=== PATIENT | female | born 1980 | race Two or more races ===

== ENCOUNTER 2018-09-08 19:31 | Emergency (ER) | payer OTHER ==
--- NOTE | 2018-09-08 19:58 | EDPHY ---
H & P Stated Complaint: pt c/o of bilateral flank pain, blood in urine x 2 days. some nausea. Time Seen by Provider: 09/08/18 19:48 HPI/ROS: 38 yo F history obtained through [employer], presents c/o 2-3 days of blood in her urine and lower back pain, a feeling of generalized fatigueand nausea. No dysuria. No fever, though she states she sometimes has hot flashes at night. No vomiting or diarrhea. Review of systems As per HPI General no fever no chills positive fatigue HEENT no eye pain no eye discharge. No eye redness, no sore throat Respiratory no cough, no shortness of breath Cardiac no chest pain, no peripheral edema GI no abdominal pain, no diarrhea, no constipation, positive nausea, no vomiting no flank pain, positive hematuria, no dysuria Musculoskeletal no myalgias, no joint pain, positive low back pain Heme no easy bruising, no easy bleeding Endo no polyuria, no polydipsia Skin no rashes, no pruritus Neuro no syncope, no dizziness, no headaches Psych is no suicidal ideation, no homicidal ideation Source: Patient Exam Limitations: No limitations - Personal History LMP (Females 10-55): 1-7 Days Ago Current Tetanus Diphtheria and Acellular Pertussis (TDAP): Unsure - Medical/Surgical History Hx Asthma: No Hx Chronic Respiratory Disease: No Hx Diabetes: No Hx Cardiac Disease: No Hx Renal Disease: No Hx Cirrhosis: No Hx Alcoholism: No Hx HIV/AIDS: No Hx Splenectomy or Spleen Trauma: No Other PMH: denies - Family History Significant Family History: No pertinent family hx - Social History Smoking Status: Never smoked Alcohol Use: None Drug Use: None - Physical Exam Exam: 38-year-old female alert and oriented no acute distress nontoxic appearance , afebrile HEENT atraumatic normocephalic, extraocular muscles intact, anicteric Oropharynx negative for erythema negative exudate, tolerating her own secretions Neck supple no meningismus Lungs clear to auscultation bilaterally Heart regular rate and rhythm without murmur rub or gallop Abdomen nondistended normoactive bowel sounds soft nontender Back no CVA tenderness, no step-offs, no spinal tenderness Mild paralumbar tenderness without swelling without rash without ecchymosis Extremities no cyanosis clubbing or edema Neuro alert and oriented, no focal deficits Constitutional: Initial Vital Signs Temperature (C) 36.7 C 09/08/18 19:50 Heart Rate 82 09/08/18 19:50 Respiratory Rate 16 09/08/18 19:50 Blood Pressure 128/79 H 09/08/18 19:50 O2 Sat (%) 97 09/08/18 19:50 O2 Delivery Mode Room Air Allergies/Adverse Reactions: No Known Allergies Allergy (Unverified 09/08/18 19:49) Home Medications: Medication Instructions Recorded NK [No Known Home Meds] 09/08/18 Medical Decision Making ED Course/Re-evaluation: Patient seen and evaluated for hematuria, lower back pain and, and generalized fatigue . IV established labs drawn Urinalysis negative for leuks negative for bacteria trace blood No evidence for urinary tract infection on urine dip, and no gross blood CBC within normal limits BMP within normal limits UA and urine culture sent to [place], to be followed The the patient given 1 L normal saline, ibuprofen 600 mg PO and a Zofran ODT Patient feeling markedly improved Impression No clear reason for her symptoms of hematuria and lower back pain, suspicious for dysmenorrhea Urine and labs unremarkable, and physical exam no CVA tenderness, does not appear like a kidney stone Plan Discharge home Rest Follow-up primary care Differential Diagnosis: Differential diagnosis considered but not limited to: Pyelonephritis, hematuria, urinary tract infection, cystitis, kidney stone, ureterolithiasis, dysmenorrhea - Data Points Laboratory Results: 09/08/18 09/08/18 09/08/18 20:49 20:47 19:40 POC Sodium 142 mEq/L mEq/L (135-145) POC Potassium 3.7 mEq/L mEq/L (3.3-5.0) POC Chloride 110.0 mEq/L mEq/L (97-110) POC Total CO2 25 mEq/L mEq/L (22-31) POC BUN 13 mg/dL mg/dL (7-23) POC Creatinine < 0.2 mg/dL L mg/dL (0.6-1.0) POC Glucose 107 mg/dL H mg/dL (70-100) POC Lactic Acid Isaias 1.0 mmol/L mmol/L (0.7-2.1) POC Calcium 9.2 mg/dL mg/dL (8.5-10.4) Urine Color YELLOW Urine Appearance CLEAR Urine pH 8.0 H (5.0-7.5) Ur Specific [place] 1.025 (1.002-1.030) Urine Protein 1+ H (NEGATIVE) Urine Ketones NEGATIVE (NEGATIVE) Urine Blood NEGATIVE (NEGATIVE) Urine Nitrate NEGATIVE (NEGATIVE) Urine Bilirubin NEGATIVE (NEGATIVE) Urine Urobilinogen NEGATIVE EU EU (0.2-1.0) Ur Leukocyte Esterase NEGATIVE (NEGATIVE) Urine RBC 1-3 /hpf /hpf (0-3) Urine WBC 1-3 /hpf /hpf (0-3) Ur Epithelial Cells TRACE /lpf /lpf (NONE-1+) Urine Mucus TRACE /lpf /lpf (NONE-1+) Urine Glucose NEGATIVE (NEGATIVE) Medications Given: Discontinued Medications Sodium Chloride (Ns) 1,000 mls @ 0 mls/hr IV ONCE ONE PRN Reason: Wide Open Stop: 09/08/18 20:24 Last Admin: 09/08/18 20:29 Dose: 1,000 mls Ibuprofen (Motrin) 600 mg PO EDNOW ONE Stop: 09/08/18 20:38 Last Admin: 09/08/18 20:42 Dose: 600 mg Ondansetron HCl (Zofran Odt) 4 mg PO EDNOW ONE Stop: 09/08/18 20:36 Last Admin: 09/08/18 20:40 Dose: 4 mg Point of Care Test Results: CBC CBC Collection Date 09/08/18 CBC Collection Time 20:30 WBC 7.27 RBC 4.57 HGB 13.2 HCT 40.5 PLT 325 Neut # 4.71 Neut 64.7 LYMPH # 1.99 LYMPH 27.4 MCV 88.6 Chemistry 09/08/18 20:47 POC Sodium 142 mEq/L mEq/L (135-145) POC Potassium 3.7 mEq/L mEq/L (3.3-5.0) POC Chloride 110.0 mEq/L mEq/L (97-110) POC Total CO2 25 mEq/L mEq/L (22-31) POC BUN 13 mg/dL mg/dL (7-23) POC Creatinine < 0.2 mg/dL L mg/dL (0.6-1.0) POC Glucose 107 mg/dL H mg/dL (70-100) POC Calcium 9.2 mg/dL mg/dL (8.5-10.4) Blood Gas/Lactic Acid-Venous 09/08/18 20:49 POC Lactic Acid Isaias 1.0 mmol/L mmol/L (0.7-2.1) Urine Collection Date 09/08/18 Collection Time 19:40 HCG Results Negative Urine Dip Collection Date 09/08/18 Collection Time 19:40 Specific [place] (1.002-1.030) 1.015 PH (5.0-7.5) 8.5 Leukocytes (Negative) Negative Nitrites (Negative) Negative Protein (Negative) Negative Glucose (Negative) Negative Ketones (Negative) Negative Urobilnogen (0.2-1.0 EU) 0.2 Bilirubin (Negative) Negative Blood (Negative) Trace Departure - Departure Disposition: Home, Routine, Self-Care Clinical Impression: Dysmenorrhea, Low back pain Condition: Good Instructions: Dysmenorrhea (ED), Acute Low Back Pain (ED) Referrals: VASQUEZ ZARAGOZA [Other] - As per Instructions Print Language: Latvian
[2018-09-08] MEDS ORDERED: NS 1,000 ML IV ONE (20:23)
[2018-09-08] MEDS ORDERED: KETOROLAC 30 MG/1 ML SDV IVP ONE (20:23)
[2018-09-08] MEDS ORDERED: ONDANSETRON 4 MG/2 ML VIAL IVP ONE (20:23)
[2018-09-08] MEDS ORDERED: ONDANSETRON DISINTEGRATING 4 MG TAB PO ONE (20:35)
[2018-09-08] MEDS ORDERED: IBUPROFEN 600 MG TAB PO ONE ×2 (20:37→20:41)
[2018-09-08 21:33] VITALS: BP 106/64
== END 2018-09-08 21:40 | disposition home or self-care (01) ==
LOC: CED 19:31
DX: N94.6 Dysmenorrhea, unspecified (principal); M54.5 Low back pain
CPT/HCPCS: 80048-ER; 83605-ER; 96361-ER; 96374-ER; 96375-ER; 99284-ER; J1885; J2405